=== PATIENT | female | born 1990 | race Two or more races ===

== ENCOUNTER 2018-05-07 21:48 | Emergency (ER) | payer OTHER ==
[~2018-05-07] VITALS: Ht 170.2 cm; Wt 64.0 kg
[2018-05-07 21:58] VITALS: BP 91/58
[2018-05-07] MEDS ORDERED: IBUPROFEN 600 MG TABLET PO ONE ×2 (22:47→23:00)
== END 2018-05-08 00:44 | disposition home or self-care (01) ==
LOC: ER 21:48
DX: S39.012A Strain of muscle, fascia and tendon of lower back, initial encounter (principal); S80.11XA Contusion of right lower leg, initial encounter; S60.812A Abrasion of left wrist, initial encounter; V49.49XA Driver injured in collision with other motor vehicles in traffic accident, initial encounter; Y93.89 Activity, other specified; Y92.413 State road as the place of occurrence of the external cause; Y99.8 Other external cause status
CPT/HCPCS: 72110-TC; 73590-TC